=== PATIENT | female | born 2000 | race Caucasian/White ===

== ENCOUNTER 2021-06-01 11:59 | Emergency (ER) | payer BC, SELFPAY ==
[2021-06-01 12:05] VITALS: BP 112/58; PULSE 67; RESP 16; TEMP 36.5; O2SAT 100
--- NOTE | 2021-06-01 12:45 | DI.RAD_ITS ---
Exam(s) XR KNEE LT 4V AP,LAT,XAVIER,PAT EXAM: XR KNEE LT 4V AP,LAT,XAVIER,PAT CLINICAL HISTORY: trauma, knee pain, worse in patella. TECHNIQUE: 2D digital imaging was performed. COMPARISON: No exams were available for comparison FINDINGS: No evidence of fracture or prominent joint effusion. Bone density normal. No degenerative changes. No osseous lesions. IMPRESSION: No fracture seen. DATA REPOSITORY: RADIATION DOSE DELIVERED:
--- NOTE | 2021-06-01 12:45 | DI.RAD_ITS ---
Exam(s) XR TIB/FIB LT EXAM: XR TIB/FIB LT CLINICAL HISTORY: trauma, anterior tibia pain. TECHNIQUE: 2D digital imaging was performed. COMPARISON: No exams were available for comparison FINDINGS: No evidence of fracture. No osseous lesions. No radiopaque foreign body. IMPRESSION: No fracture evident DATA REPOSITORY: RADIATION DOSE DELIVERED:
--- NOTE | 2021-06-01 12:45 | DI.RAD_ITS ---
Exam(s) XR FOOT LT COMPLETE EXAM: XR FOOT LT COMPLETE CLINICAL HISTORY: trauma, dorsal foot pain. TECHNIQUE: 2D digital imaging was performed. COMPARISON: No exams were available for comparison FINDINGS: There is no evidence of fracture or diastasis of the Natalie amy joint. Bone density normal. No osseo us lesions. No radiopaque foreign body. IMPRESSION: No fracture evident. DATA REPOSITORY: RADIATION DOSE DELIVERED:
--- NOTE | 2021-06-01 13:02 | ED.GENADUL_ITS ---
Discharge Plan Disposition Patient Disposition: HOME Condition: Stable Discharge Details Clinical Impression: Injury of knee, left, Left leg injury, Injury of foot, left Primary Care Provider: Unknown,Unknown ED Provider: Lisa Canales Home Meds and New Rx's Prescriptions: Continued albuterol sulfate [ProAir HFA] 90 mcg/actuation Hfa Aerosol Inhaler 2 puff INHALATION [id number] Discharge Instructions Instructions: Knee Pain (ED), Knee Immobilizer (ED) Additional Instructions: Please return immediately to the emergency department if you develop any new or worsening symptoms, if your condition does not improve as expected, or if you become otherwise concerned. It is extremely important that you call soon as possible to make an appointment to be seen in follow-up for this visit by your primary care doctor and an orthopedic surgeon as we discussed. Stand Alone Forms: Work Release Discharge Data Discharge Date/Time-TO BE ENTERED AT DEPARTURE: 06/01/21 16:08 Medical Decision Making Corazon Solis is a 21 y/o woman without reported h/o medical problems presenting to the emergency department with knee pain. Pt reports that JPT[employer] she was snowboarding. Pt reports that she caught an edge and fell forward onto her knees, then fell to the side and on to her back. Pt reports that impact was mild but she felt painful pulling/twisting sensation. She states that she did hit her head, had no LOC, no vomiting, and remembers the event in it's entirety. Pt reports that directly after fall she noticed pain in her left knee, left anterior lower leg, and top of left foot, with worst pain in her knee. She denies any other pain or injury. Pt reports that she was previously well and in her usual state of health. States that fall was mechanical, denies any preceding symptoms. She denies fever, SOB, cough, vomiting, diarrhea, numbness, weakness, skin wound, rash. Pt was able to bear weight on LLE after accident but with left knee pain. Exam reveals Pt well and non-toxic appearing. Left lower extremity neurovascularly intact. TTP of the knee, anterior tibia to midshaft, and dorsal proximal foot. No skin wound. Concern for soft tissue injury of the knee, fracture of the knee/lower leg/foot, contusion, other. Exam/hx at this time is not c/w ankle fracture, emergent injury of the other extremities, head, spine, thorax, abdomen, neuro/vascular injury of the LLE. Plan for xrays, ibuprofen for pain. Xrays without bony pathology. Plan for knee immolbilizer, crutches, outpt f/u with ortho. Pt states that she is from [place] and is leaving [place] tomorrow; would like to f/u with ortho in [place]. I had a discussion with Patient regarding return to emergency department precautions, home care, and importance of outpatient follow-up. Pt verbalizes understanding of the plan and is amenable. Patient discharged to home with clear plan for outpatient follow-up. All questions were answered. Disposition decision was made weighing the risks and benefits of hospitalization versus outpatient treatment, the risk for further decompensation, and the patient's wishes. Medical Records Medical records reviewed: Yes I reviewed the patient's medical records. Imaging Data Radiologic Study: Attestation: I personally reviewed and interpreted this imaging study as follows: Radiologist's impression: EXAM:? XR FOOT LT COMPLETE CLINICAL HISTORY: ? trauma, dorsal foot pain. ? TECHNIQUE:? 2D digital imaging was performed. COMPARISON:? No exams were available for comparison FINDINGS: There is no evidence of fracture or diastasis of the Natalie amy joint.? Bone density normal.? No osseous lesions.? No radiopaque foreign body. IMPRESSION: No fracture evident. EXAM:? XR KNEE LT 4V AP,LAT,XAVIER,PAT CLINICAL HISTORY: ? trauma, knee pain, worse in patella. ? TECHNIQUE:? 2D digital imaging was performed. COMPARISON:? No exams were available for comparison FINDINGS: No evidence of fracture or prominent joint effusion.? Bone density normal.? No degenerative changes.? No osseous lesions. IMPRESSION: No fracture seen. EXAM:? XR TIB/FIB LT CLINICAL HISTORY: ? trauma, anterior tibia pain. ? TECHNIQUE:? 2D digital imaging was performed. COMPARISON:? No exams were available for comparison FINDINGS: No evidence of fracture.? No osseous lesions.? No radiopaque foreign body. IMPRESSION: No fracture evident HPI General Date/Time Provider Initiated Documentation: 06/01/21 12:53 . Limitations to Documentation: no limitations . Information obtained by: patient, RN notes reviewed and old records reviewed . HPI Narrative: Corazon Solis is a 21 y/o woman without reported h/o medical problems presenting to the emergency department with knee pain. Pt reports that [place]PT[employer] she was snowboarding. Pt reports that she caught an edge and fell forward onto her knees, then fell to the side and on to her back. Pt reports that impact was mild but she felt painful pulling/twisting sensation. She states that she did hit her head, had no LOC, no vomiting, and remembers the event in it's entirety. Pt reports that directly after fall she noticed pain in her left knee, left anterior lower leg, and top of left foot, with worst pain in her knee. She denies any other pain or injury. Pt reports that she was previously well and in her usual state of health. States that fall was mechanical, denies any preceding symptoms. She denies fever, SOB, cough, vomiting, diarrhea, numbness, weakness, skin wound, rash. Pt was able to bear weight on LLE after accident but with left knee pain. Related Data Home Medications Medication Instructions Recorded Confirmed albuterol sulfate 90 mcg/actuation 2 puff INHALATION PRN 06/01/21 aerosol inhaler (ProAir HFA) Allergies Allergy/AdvReac Type Severity Reaction Status Date / Time nystatin cream Allergy Intermediate Hives Uncoded 06/01/21 12:11 General Stated Complaint: Orthopedic ELDA: 4 Review of Systems Narrative: Constitutional: denies fevers Eyes: denies eye pain ENT: denies ear pain, dental pain, sore throat Cardiovascular: denies chest pain Respiratory: denies SOB, cough GI: denies abdominal pain, vomiting, diarrhea : denies flank pain MSK: reports left knee pain, anterior left lower leg pain, dorsal left foot pain, denies back pain, neck pain, other arthralgias/myalgias Skin: denies rash Neuro: denies headaches, numbness, weakness PFSH All Active Problems (Updated 06/01/21 @ 15:06 by Lisa Canales MD) Injury of knee, left (Acute) Left leg injury (Acute) Injury of foot, left (Acute) Social History Smoking/Tobacco Use Status: Never Smoking risk assessment performed?: Yes Alcohol Intake: never Drug use: Occasionally Substance use type: marijuana Exam Narrative Exam Narrative: Constitutional: well and [id number], pleasant, conversing normally HENT: head atraumatic/normocephalic/normal inspection, mucous membranes moist Eyes: conjunctiva normal, sclera normal, pupils 3mm b/l Neck: no stridor, normal ROM, trachea midline Resp: normal work of breathing, speaking in full sentences Cardio: normal rate, normal rhythm Skin: warm, dry, normal color, no rash Neuro: alert, not altered, grossly non-focal, normal tone Ext: DP, PT pulses intact and symmetric. Left toes with FROM, normal sensation, brisk cap refill. Left knee with mild effusion, TTP over lateral joint space, patella, and anterior proximal tibia. No popliteal TTP. Able to fully extend knee, pain with flexion, able to flex to approx 60 degrees. No overlying skin changes of the knee. TTP over proximal to midshaft left tibia without overlying skin changes. No TTP of the medial or lateral left malleoli. Dorsiflexion and plantarflexion of the ankle intact, causes knee pain. TTP of the dorsal proximal foot, no overlying skin changes, no calcaneus or other foot TTP. No edema of the lower leg, ankle, or foot. Psych: normal mood, normal affect, normal behavior Course Vital Signs Vital signs: Vital Signs Temperature 36.5 C 06/01/21 12:05 Pulse 67 06/01/21 12:05 Respiratory Rate 16 06/01/21 12:05 Blood Pressure 112/58 L 06/01/21 12:05 Pulse Oximetry 100 06/01/21 12:05 Temperature 36.5 C 06/01/21 12:05 Temperature Source Skin 06/01/21 12:05 Pulse 67 06/01/21 12:05 Respiratory Rate 16 06/01/21 12:05 Respiratory Effort 06/01/21 12:05 Blood Pressure 112/58 L 06/01/21 12:05 Blood Pressure Position Sitting 06/01/21 12:05 Pulse Oximetry 100 06/01/21 12:05 Oxygen Delivery Method Room Air 06/01/21 12:05 Oxygen Flow Rate 0 06/01/21 12:05 Pain Level 9 06/01/21 12:05 Lab/Test Results Lab/Test Results: POC- Test(urine) Negative
[2021-06-01 14:01] VITALS: BP 119/63; PULSE 88; RESP 12; TEMP 36.1; O2SAT 100
[2021-06-01] MEDS: Ibuprofen 600 MG TAB PO (14:07)
[2021-06-01 15:42] VITALS: BP 119/63; PULSE 88; RESP 12; TEMP 36.1; O2SAT 100
--- NOTE | 2021-06-01 16:10 | NUR.NOTE ---
Patient left prior to receiving work note. Work note mailed to patient. Teresa Landa Nursing Note:
== END 2021-06-01 16:08 | disposition home or self-care (01) ==
PROVIDERS: Emergency Provider Student in an Organized Health Care Education/Training Program
DX: S89.82XA Other specified injuries of left lower leg, initial encounter (principal); S99.822A Other specified injuries of left foot, initial encounter; V00.311A Fall from snowboard, initial encounter
CPT/HCPCS: 29505; 81025; 99284; 73564; 73590; 73630; 99283